=== PATIENT | female | born 1995 | race Caucasian/White ===

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

== ENCOUNTER 2021-01-16 14:57 | Observation (INO) | payer OTHER ==
[~2021-01-16] VITALS: Ht 152.4 cm; Wt 70.8 kg
[2021-01-16] MEDS ORDERED: PREN1TAB22 PO (16:03)
[2021-01-16] MEDS ORDERED: FERR-63 PO (16:03)
== END 2021-01-16 17:20 | disposition home or self-care (01) ==
LOC: 8 EST LDRP 14:57
PROVIDERS: ADMIT Obstetrics & Gynecology; ATTEND Obstetrics & Gynecology
DX: O36.8130 Decreased fetal movements, third trimester, not applicable or unspecified (principal); Z3A.30 30 weeks gestation of pregnancy
CPT/HCPCS: 59025; 76815; 76818; G0378; 99281

== ENCOUNTER 2021-03-17 07:52 | Inpatient (IN) | payer OTHER ==
[~2021-03-17] VITALS: Ht 152.4 cm; Wt 74.4 kg
[~2021-03-17 07:52] MED LIST: FERR-63 PO; PREN1TAB22 PO
[2021-03-17] MEDS ORDERED: LIDOCAINE HCL 1% 20ML VIAL (Pyxis) INJ INFIL SCH (08:45)
[2021-03-17] MEDS ORDERED: RHO(D) IMMUNE GLOBULIN 300 MCG/SYR IM ONE (08:45)
[2021-03-17] MEDS ORDERED: BUTORPHANOL TARTRATE 2 MG/ML VIAL IV PRN (08:45)
[2021-03-17] MEDS: LACTATED RINGERS 1,000 ML IV SCH ×3 (09:26→21:14)
[2021-03-17] MEDS: DEXT 5%/LR + PITOCIN 20UNITS/L 1,000 ML IV SCH (09:31)
[2021-03-17 09:43] LABS: INR 0.9; PARTIAL THROMBOPLASTIN TIME 23.9 sec (23.4-31.0); PROTHROMBIN TIME 9.8 sec (9.6-11.0)
[2021-03-17 09:54] LABS: BASOPHILS % 0.3 % (0.0-2.0); EOSINOPHILS % 0.4 % (0.0-5.0); HEMATOCRIT. 39.7 % (36.0-48.0); HEMOGLOBIN. 13.4 g/dL (12.0-16.0); LYMPHOCYTES % 19.7 % (20.0-50.0); MEAN CORPUSCULAR HEMOGLOBIN 31.5 pg (28.0-32.0); MEAN CORPUSCULAR VOLUME 93.6 fL (81.0-99.0); MEAN PLATELET VOLUME 9.2 fl (7.4-10.4); MONOCYTES % 8.5 % (2.0-8.0); NEUTROPHILS % 71.1 % (40.0-76.0); PLATELET 161 x1000/uL (130-400); RED BLOOD CELL COUNT 4.24 mill/uL (4.2-5.4); RED CELL DISTRIBUTION WIDTH 12.6 % (11.6-14.6)
[2021-03-17 10:26] LABS: HEPATITIS B SURFACE ANTIGEN NEGATIVE
[2021-03-17 11:14] LABS: CLARITY URINE CLEAR (CLEAR); COLOR URINE YELLOW (YELLOW); KETONES URINE 1+ (NEGATIVE); LEUKOCYTE ESTERASE URINE 2+ (NEGATIVE); NITRITE URINE NEGATIVE (NEGATIVE); OCCULT BLOOD URINE NEGATIVE (NEGATIVE); PH URINE 5.5 (4.5-8.0); PROTEIN URINE NEGATIVE (NEGATIVE); SPECIFIC GRAVITY URINE 1.023 (1.005-1.030)
[2021-03-17 12:12] LABS: *AMPHETAMINES SCREEN URINE NEGATIVE (NEGATIVE); *BARBITURATES SCREEN URINE NEGATIVE (NEGATIVE); *BENZODIAZEPINES SCREEN URINE NEGATIVE (NEGATIVE); *COCAINE SCREEN URINE NEGATIVE (NEGATIVE); OPIATES URINE SCREEN NEGATIVE (NEGATIVE)
[2021-03-17 12:13] LABS: CANNABINOID URINE SCREEN NEGATIVE (NEGATIVE); PHENCYCLIDINE URINE SCREEN NEGATIVE (NEGATIVE)
[2021-03-17 12:15] LABS: METHADONE URINE SCREEN NEGATIVE (NEGATIVE)
[2021-03-17] MEDS ORDERED: ROPIVACAINE HCL/PF EPIDURAL 200 ML EPI SCH (20:15)
[2021-03-18] MEDS: ONDANSETRON HCL 4MG/2ML INJ IV PRN ×2 (01:44→08:52)
[2021-03-18] MEDS: LACTATED RINGERS 1,000 ML IV SCH (07:34)
[2021-03-18] MEDS: DEXT 5%/LR + PITOCIN 20UNITS/L 1,000 ML IV SCH (08:57)
[2021-03-18] MEDS ORDERED: BISACODYL 10MG SUPP PR PRN (12:00)
[2021-03-18] MEDS ORDERED: DIPHENHYDRAMINE 25MG CAPSULE PO PRN (12:00)
[2021-03-18] MEDS ORDERED: RHO(D) IMMUNE GLOBULIN 300 MCG/SYR IM PRN (12:00)
[2021-03-18] MEDS ORDERED: LANOLIN OINT 7GM TUBE TOP PRN (12:00)
[2021-03-18] MEDS ORDERED: GLYCERIN/WITCH HAZEL LEAF MEDICATED PAD TOP PRN (12:00)
[2021-03-18] MEDS ORDERED: HEMORRHOIDAL SUPP PR PRN (12:00)
[2021-03-18] MEDS ORDERED: IBUPROFEN 400MG TABLET PO PRN (12:00)
[2021-03-18] MEDS ORDERED: ACETAMINOPHEN WITH CODEINE 300/30MG TABLET PO PRN ×2 (12:00)
[2021-03-18] MEDS ORDERED: DEXT 5%/LR + PITOCIN 20UNITS/L 1,000 ML IV SCH (12:00)
[2021-03-18 13:30] VITALS: BP 120/69
[2021-03-18 15:00] VITALS: BP 101/42
[2021-03-18 17:32] VITALS: BP 111/50
[2021-03-18 19:30] VITALS: BP 114/73
[2021-03-18] MEDS: MAGNESIUM/ALUMINUM HYDROXIDE/SIMETHICONE 30ML UDC PO SCH (21:22)
[2021-03-18] MEDS: DOCUSATE SODIUM 100MG CAPSULE PO SCH (21:23)
[2021-03-18] MEDS: BENZOCAINE/LANOLIN/ALOE VERA SPRAY TOP PRN (21:24)
[2021-03-18] MEDS: SIMETHICONE 80MG TABLET CHEW PO SCH (21:52)
[2021-03-19 04:00] VITALS: BP 96/57
[2021-03-19] MEDS ORDERED: MEASLES,MUMPS&RUBELLA VACCINE 1 VIAL SUBCUT ONE (06:00)
[2021-03-19 06:56] LABS: BASOPHILS % 0.2 % (0.0-2.0); EOSINOPHILS % 0.2 % (0.0-5.0); HEMATOCRIT. 27.9 % (36.0-48.0); HEMOGLOBIN. 9.8 g/dL (12.0-16.0); LYMPHOCYTES % 12.7 % (20.0-50.0); MEAN CORPUSCULAR HEMOGLOBIN 32.8 pg (28.0-32.0); MEAN CORPUSCULAR VOLUME 93.5 fL (81.0-99.0); MONOCYTES % 6.9 % (2.0-8.0); PLATELET 116 x1000/uL (130-400); RED BLOOD CELL COUNT 2.98 mill/uL (4.2-5.4); RED CELL DISTRIBUTION WIDTH 12.7 % (11.6-14.6)
[2021-03-19] MEDS ORDERED: FERROUS SULFATE 325MG TABLET PO SCH (07:30)
[2021-03-19 08:30] VITALS: BP 115/65
[2021-03-19] MEDS ORDERED: PRENATAL VIT/FE FUMARATE/FA TABLET PO SCH (09:00)
[2021-03-19 16:44] VITALS: BP 97/67
[2021-03-19 19:30] VITALS: BP 119/80
[2021-03-19] MEDS: MAGNESIUM/ALUMINUM HYDROXIDE/SIMETHICONE 30ML UDC PO SCH (21:51)
[2021-03-19] MEDS: DOCUSATE SODIUM 100MG CAPSULE PO SCH (21:52)
[2021-03-20 04:00] VITALS: BP 117/74
[2021-03-20 07:40] VITALS: BP 119/80
[2021-03-20] MEDS: SIMETHICONE 80MG TABLET CHEW PO SCH (08:00)
[2021-03-20] MEDS: MAGNESIUM/ALUMINUM HYDROXIDE/SIMETHICONE 30ML UDC PO SCH (08:07)
[2021-03-20] MEDS ORDERED: IBUP-2028 PO (08:35)
[2021-03-20] MEDS: BENZOCAINE/LANOLIN/ALOE VERA SPRAY TOP PRN (09:53)
== END 2021-03-20 10:10 | disposition home or self-care (01) | DRG 560 ==
LOC: OBSVTOIN 07:52 → 8 EST LDRP 07:52 → 8EST 03-18 12:53
PROVIDERS: ADMIT Obstetrics & Gynecology; ATTEND Obstetrics & Gynecology
PROC: 10D07Z6 Extraction of Products of Conception, Vacuum, Via Natural or Artificial Opening (ICD-10-PCS; principal; 2021-03-18)
PROC: 3E0R3BZ Introduction of Anesthetic Agent into Spinal Canal, Percutaneous Approach (ICD-10-PCS; 2021-03-18)
PROC: 00HU33Z Insertion of Infusion Device into Spinal Canal, Percutaneous Approach (ICD-10-PCS; 2021-03-18)
DX: O80 Encounter for full-term uncomplicated delivery (principal); Z37.0 Single live birth; Z20.822 Contact with and (suspected) exposure to COVID-19; Z3A.39 39 weeks gestation of pregnancy
CPT/HCPCS: 36415; 76805; 76818; 80305; 81003; 85025; 86592; 86703; 86762; 86850; 86900; 87340; 87426; 90707; 99281; J2405; J2590; J2795; J3490; A4315

== ENCOUNTER 2022-03-18 01:23 | Inpatient (IN) | payer OTHER ==
[~2022-03-18] VITALS: Ht 162.6 cm; Wt 70.8 kg
[~2022-03-18 01:23] MED LIST changes: +IBUP-2028 PO
[2022-03-18] MEDS ORDERED: LIDOCAINE HCL 1% 20ML VIAL (Pyxis) INJ INFIL SCH (03:30)
[2022-03-18] MEDS ORDERED: LACTATED RINGERS 1,000 ML IV SCH (03:30)
[2022-03-18] MEDS ORDERED: RHO(D) IMMUNE GLOBULIN 300 MCG/SYR IM ONE (03:30)
[2022-03-18] MEDS ORDERED: OXYTOCIN 30 UNITS/500ML NS PMX 500 ML IV SCH ×2 (04:00→11:45)
[2022-03-18] MEDS ORDERED: METHYLERGONOVINE MALEATE 0.2 MG/ML IM PRN (04:00)
[2022-03-18] MEDS ORDERED: BUTORPHANOL TARTRATE 2 MG/ML VIAL IV PRN (04:00)
[2022-03-18] MEDS ORDERED: NALOXONE HCL 0.4 MG/ML 1ML VIAL IM PRN (04:00)
[2022-03-18 04:09] LABS: BASOPHILS % 0.2 % (0.0-2.0); HEMATOCRIT. 39.4 % (36.0-48.0); HEMOGLOBIN. 13.8 g/dL (12.0-16.0); LYMPHOCYTES % 9.4 % (20.0-50.0); MEAN CORPUSCULAR HEMOGLOBIN 32.7 pg (28.0-32.0); MEAN PLATELET VOLUME 8.4 fl (7.4-10.4); MONOCYTES % 4.2 % (2.0-8.0); NEUTROPHILS % 86.2 % (40.0-76.0); PLATELET 170 x1000/uL (130-400); RED BLOOD CELL COUNT 4.23 mill/uL (4.2-5.4)
[2022-03-18 04:13] LABS: INR 0.9; PARTIAL THROMBOPLASTIN TIME 24.5 sec (23.4-31.0); PROTHROMBIN TIME 9.8 sec (9.6-11.0)
[2022-03-18] MEDS ORDERED: DIPHENHYDRAMINE 25MG CAPSULE PO PRN (11:45)
[2022-03-18] MEDS ORDERED: IBUPROFEN 400MG TABLET PO PRN (11:45)
[2022-03-18] MEDS ORDERED: IBUPROFEN 800MG TABLET PO PRN (11:45)
[2022-03-18] MEDS ORDERED: HEMORRHOIDAL SUPP PR PRN (11:45)
[2022-03-18] MEDS ORDERED: BENZOCAINE/LANOLIN/ALOE VERA SPRAY TOP PRN (11:45)
[2022-03-18] MEDS ORDERED: MAGNESIUM 4 G PREMIX 100 ML IV NR (11:45)
[2022-03-18] MEDS ORDERED: GLYCERIN/WITCH HAZEL LEAF MEDICATED PAD TOP PRN (11:45)
[2022-03-18] MEDS ORDERED: BISACODYL 10MG SUPP PR PRN (11:45)
[2022-03-18] MEDS ORDERED: LANOLIN OINT 7GM TUBE TOP PRN (11:45)
[2022-03-18] MEDS ORDERED: RHO(D) IMMUNE GLOBULIN 300 MCG/SYR IM PRN (11:45)
[2022-03-18] MEDS ORDERED: OXYCODONE HCL/ACETAMINOPHEN 5/325MG TABLET PO PRN (11:45)
[2022-03-18] MEDS ORDERED: MAGNESIUM/ALUMINUM HYDROXIDE/SIMETHICONE 30ML UDC PO SCH (13:00)
[2022-03-18 13:30] VITALS: BP 113/70
[2022-03-18 16:00] VITALS: BP 115/72
[2022-03-18 16:11] LABS: CLARITY URINE TURBID (CLEAR); COLOR URINE RED (YELLOW); KETONES URINE 3+ (NEGATIVE); LEUKOCYTE ESTERASE URINE 2+ (NEGATIVE); NITRITE URINE POSITIVE (NEGATIVE); OCCULT BLOOD URINE 2+ (NEGATIVE); PROTEIN URINE 2+ (NEGATIVE); SPECIFIC GRAVITY URINE 1.032 (1.005-1.030); UROBILINOGEN URINE 0.2 E.U./dL (0.2-1.0)
[2022-03-18 16:33] LABS: *AMPHETAMINES SCREEN URINE NEGATIVE (NEGATIVE); *BARBITURATES SCREEN URINE NEGATIVE (NEGATIVE); *BENZODIAZEPINES SCREEN URINE NEGATIVE (NEGATIVE); *COCAINE SCREEN URINE NEGATIVE (NEGATIVE); CANNABINOID URINE SCREEN NEGATIVE (NEGATIVE); METHADONE URINE SCREEN NEGATIVE (NEGATIVE); OPIATES URINE SCREEN NEGATIVE (NEGATIVE); PHENCYCLIDINE URINE SCREEN NEGATIVE (NEGATIVE)
[2022-03-18 20:00] VITALS: BP 114/61
[2022-03-18] MEDS ORDERED: DOCUSATE SODIUM 100MG CAPSULE PO SCH (21:00)
[2022-03-18] MEDS: SIMETHICONE 80MG TABLET CHEW PO SCH (22:10)
[2022-03-19 04:00] VITALS: BP 103/74
[2022-03-19] MEDS ORDERED: IBUP-2030 PO (05:13)
[2022-03-19 06:47] LABS: BASOPHILS % 0.5 % (0.0-2.0); EOSINOPHILS % 0.3 % (0.0-5.0); HEMATOCRIT. 32.1 % (36.0-48.0); HEMOGLOBIN. 11.5 g/dL (12.0-16.0); LYMPHOCYTES % 19.3 % (20.0-50.0); MEAN CORPUSCULAR HEMOGLOBIN 33.5 pg (28.0-32.0); MEAN CORPUSCULAR VOLUME 93.5 fL (81.0-99.0); MEAN PLATELET VOLUME 8.5 fl (7.4-10.4); MONOCYTES % 7.2 % (2.0-8.0); NEUTROPHILS % 72.7 % (40.0-76.0); PLATELET 150 x1000/uL (130-400); RED BLOOD CELL COUNT 3.44 mill/uL (4.2-5.4); RED CELL DISTRIBUTION WIDTH 12.8 % (11.6-14.6)
[2022-03-19 08:00] VITALS: BP 117/74
[2022-03-19] MEDS ORDERED: PRENATAL VIT/FE FUMARATE/FA TABLET PO SCH (09:00)
[2022-03-19] MEDS ORDERED: FERROUS SULFATE 325MG TABLET PO SCH (09:00)
[2022-03-19] MEDS: SIMETHICONE 80MG TABLET CHEW PO SCH (09:14)
[2022-03-19 09:15] VITALS: BP 103/74
== END 2022-03-19 13:10 | disposition home or self-care (01) | DRG 560 ==
LOC: OBSVTOIN 01:23 → 8 EST LDRP 01:23 → 8 EST A/PP 13:56
PROVIDERS: ADMIT Obstetrics & Gynecology; ATTEND Obstetrics & Gynecology
PROC: 10E0XZZ Delivery of Products of Conception, External Approach (ICD-10-PCS; principal; 2022-03-19)
DX: O80 Encounter for full-term uncomplicated delivery (principal); Z37.0 Single live birth; Z20.822 Contact with and (suspected) exposure to COVID-19; Z3A.39 39 weeks gestation of pregnancy; Z88.6 Allergy status to analgesic agent
CPT/HCPCS: 36415; 80305; 81003; 85025; 86592; 86703; 86850; 86900; 87340; 87426; 99281; J3490; J7120; J2590